=== PATIENT | male | born 1950 | race Caucasian/White ===

== ENCOUNTER 2017-10-07 12:38 | Emergency (ER) | payer MEDICARE ==
[2017-10-07] MEDS ORDERED: Aspirin 81 mg CHEW TAB* 81 MG TAB.CHEW PO ONE (13:04)
[2017-10-07 13:10] LABS: Hematocrit 41 % (42-52); Hemoglobin 14.4 g/dl (14.0-18.0); Mean Corpuscular HGB Conc 35 g/dl (31-36); Mean Corpuscular Hemoglobin 31 pg (27-31); Mean Corpuscular Volume 89 fL (80-94); Mean Platelet Volume 8.5 um3 (7.4-10.4); Platelet Count 175 10^3/ul (150-450); Red Blood Count 4.58 10^6/ul (4.0-5.4); Red Cell Distribution Width 14 % (10.5-15); White Blood Count 6.5 10^3/ul (3.5-10.8)
[2017-10-07 13:27] LABS: EGFR Non-African American 112.8 (>60)
[2017-10-07 13:58] LABS: ABS Basophils 0 10^3/ul (0-0.2); ABS Eosinophils 0.3 10^3/ul (0-0.6); ABS Lymphocytes 1.7 10^3/ul (1.0-4.8); ABS Monocytes 0.7 10^3/ul (0-0.8); ABS Neutrophils 3.7 10^3/ul (1.5-7.7)
[2017-10-07 14:00] LABS: Monocytes % 11 % (0-7)
--- NOTE | 2017-10-07 16:53 | RAD ---
INDICATION: Intermittent chest pain and pressure for one month. Chest tightness. COMPARISON: September 26, [address] TECHNIQUE: Dual energy PA and routine lateral views of the chest were obtained. REPORT: Elevated lung volumes and both diffuse mild prominence of the interstitial markings and patchy rarefaction of the mid to upper lung zone interstitial markings. No focal pulmonary lesion, compelling alveolar consolidation, pleural effusion, pneumothorax. The heart, pulmonary vasculature, and mediastinal contours are unremarkable. Unremarkable soft tissue contours and osseous structures. IMPRESSION: Stigmata of obstructive lung disease. No acute pulmonary or cardiac process evident.
[2017-10-07 17:00] VITALS: BP 131/74
--- NOTE | 2017-10-07 18:22 | ED ---
Malcolm Luna Gabriel, scribed for Gabriel Grewal MD on 10/07/17 at 1301 . HPI Chest Pain - HPI Summary HPI Summary: This patient is a 67 year old M presenting to [facility] accompanied by his with a chief complaint of intermittent chest pressure for the last month. The patient rates the pain 2/10 in severity and states it does not radiate. Patient reports fatigue. Pt has intermittent chronic dry cough. Pt saw Dr. Jarrell last week and EKG was done but he did not mention the CP to him. He states his prior TX had much more pain. Pt has needed to take multiple naps a day recently which he states is unlike him. Hx 2 stents - History of Current Complaint Chief Complaint: EDChestPainROMI Hx Obtained From: Patient Onset/Duration: Started Weeks Ago, Still Present Timing: Constant Initial Severity: Mild Current Severity: Mild Pain Intensity: 2 Pain Scale Used: 0-10 Numeric Chest Pain Location: Diffuse Chest Pain Radiates: No Associated Signs and Symptoms: Positive: Cough, Other: - fatigue - Allergy/Home Medications Allergies/Adverse Reactions: Allergies Allergy/AdvReac Type Severity Reaction Status Date / Time No Known Allergies Allergy Verified 09/26/16 10:39 PMH/Surg Hx/FS Hx/Imm Hx Endocrine/Hematology History: Denies: Hx Diabetes Cardiovascular History: Reports: Hx Myocardial Infarction Denies: Hx Coronary Artery Disease, Hx Hypertension Respiratory History: Denies: Hx Chronic Obstructive Pulmonary Disease (COPD) History: Denies: Hx Renal Disease Musculoskeletal History: Denies: Hx Congenital Bone Abnormalities Sensory History: Reports: Hx Contacts or Glasses Opthamlomology History: Reports: Hx Contacts or Glasses - Surgical History Surgery Procedure, Year, and Place: appendectomy. cardiac stent Infectious Disease History: No Infectious Disease History: Denies: Traveled Outside the [place] in Last 30 Days - Family History Known Family History: Positive: Cardiac Disease, Hypertension - Social History Occupation: Employed Part-time Lives: With Family Alcohol Use: None Hx Substance Use: No Substance Use Type: Reports: None Hx Tobacco Use: No Smoking Status (MU): Never Smoked Tobacco Review of Systems Positive: Fatigue Positive: Chest Pain Positive: Cough All Other Systems Reviewed And Are Negative: Yes Physical Exam - Summary Physical Exam Summary: VITAL SIGNS: Reviewed. GENERAL: Patient is a well-developed and nourished male who is lying comfortable in the stretcher. Patient is not in any acute respiratory distress. HEAD AND FACE: No signs of trauma. No ecchymosis, hematomas or skull depressions. No sinus tenderness. EYES: PERRLA, EOMI x 2, No injected conjunctiva, no nystagmus. EARS: Hearing grossly intact. Ear canals and tympanic membranes are within normal limits. MOUTH: Oropharynx within normal limits. NECK: Supple, trachea is midline, no adenopathy, no JVD, no carotid bruit, no c- spine tenderness, neck with full ROM. CHEST: Symmetric, no tenderness at palpation LUNGS: Clear to auscultation bilaterally. No wheezing or crackles. CVS: Regular rate and rhythm, S1 and S2 present, no murmurs or gallops appreciated. ABDOMEN: Soft, non-tender. No signs of distention. No rebound no guarding, and no masses palpated. Bowel sounds are normal. EXTREMITIES: FROM in all major joints, no edema, no cyanosis or clubbing. NEURO: Alert and oriented x 3. No acute neurological deficits. Speech is normal and follows commands. SKIN: Dry and warm Triage Information Reviewed: Yes Vital Signs On Initial Exam: Initial Vitals Temp Pulse Resp BP Pulse Ox 98.1 F 63 18 128/80 98 10/07/17 12:40 10/07/17 12:40 10/07/17 12:40 10/07/17 12:40 10/07/17 12:40 Vital Signs Reviewed: Yes Diagnostics - Vital Signs Vital Signs Temp Pulse Resp BP Pulse Ox 10/07/17 12:40 98.1 F 63 18 128/80 98 - Laboratory Lab Results: Lab Results 10/07/17 10/07/17 10/07/17 Range/Units 13:01 13:01 13:01 WBC 6.5 (3.5-10.8) 10^3/ul RBC 4.58 (4.0-5.4) 10^6/ul Hgb 14.4 (14.0-18.0) g/dl Hct 41 L (42-52) % MCV 89 (80-94) fL MCH 31 (27-31) pg MCHC 35 (31-36) g/dl RDW 14 (10.5-15) % Plt Count 175 (150-450) 10^3/ul MPV 8.5 (7.4-10.4) um3 Neut % (Auto) Not Reportable Lymph % (Auto) Not Reportable [place] % (Auto) Not Reportable Eos % (Auto) Not Reportable Baso % (Auto) Not Reportable Absolute Neuts (auto) 3.7 (1.5-7.7) 10^3/ul Absolute Lymphs (auto) 1.7 (1.0-4.8) 10^3/ul Absolute Monos (auto) 0.7 (0-0.8) 10^3/ul Absolute Eos (auto) 0.3 (0-0.6) 10^3/ul Absolute Basos (auto) 0 (0-0.2) 10^3/ul Absolute Nucleated RBC Not Reportable Neutrophils % 67 (38-83) % Lymphocytes % 17 L (25-47) % Reactive Lymphs % 2 (0-6) % Monocytes % 11 H (0-7) % Eosinophils % 2 (0-6) % Basophils % 1 (0-2) % Nucleated RBC % Not Reportable Abs Neuts (Manual) 4.4 (1.5-7.7) 10^3/ul Abs Lymphs (Manual) 1.1 (1.0-4.8) 10^3/ul Abs Monocytes (Manual) 0.7 (0-0.8) 10^3/ul Absolute Eos (Manual) 0.1 (0-0.6) 10^3/ul Abs Basophils (Manual) 0.1 (0-0.2) 10^3/ul Normal RBC Morphology Normal (Normal) Hem Pathologist Commnt Sodium 139 (139-145) mmol/L Potassium 3.9 (3.5-5.0) mmol/L Chloride 105 (101-111) mmol/L Carbon Dioxide 28 (22-32) mmol/L Anion Gap 6 (2-11) mmol/L BUN 12 (6-24) mg/dL Creatinine 0.70 (0.67-1.17) mg/dL Est GFR ( Amer) 145.1 (>60) Est GFR (Non-Af Amer) 112.8 (>60) BUN/Creatinine Ratio 17.1 (8-20) Glucose 98 (70-100) mg/dL Lactic Acid 1.0 (0.5-2.0) mmol/L Calcium 9.3 (8.6-10.3) mg/dL Total Bilirubin 0.90 (0.2-1.0) mg/dL AST 19 (13-39) U/L ALT 18 (7-52) U/L Alkaline Phosphatase 57 (34-104) U/L Total Creatine Kinase 51 (10-223) U/L CK-MB (CK-2) 1.1 (0.6-6.3) ng/mL Troponin I 0.00 (<0.04) ng/mL C-Reactive Protein 1.53 (< 5.00) mg/L Total Protein 6.5 (6.4-8.9) g/dL Albumin 3.8 (3.2-5.2) g/dL Globulin 2.7 (2-4) g/dL Albumin/Globulin Ratio 1.4 (1-3) Amylase 42 (29-103) U/L Lipase 15 (11.0-82.0) U/L / Range/Units 15:33 WBC (3.5-10.8) 10^3/ul RBC (4.0-5.4) 10^6/ul Hgb (14.0-18.0) g/dl Hct (42-52) % MCV (80-94) fL MCH (27-31) pg MCHC (31-36) g/dl RDW (10.5-15) % Plt Count (150-450) 10^3/ul MPV (7.4-10.4) um3 Neut % (Auto) Lymph % (Auto) [place] % (Auto) Eos % (Auto) Baso % (Auto) Absolute Neuts (auto) (1.5-7.7) 10^3/ul Absolute Lymphs (auto) (1.0-4.8) 10^3/ul Absolute Monos (auto) (0-0.8) 10^3/ul Absolute Eos (auto) (0-0.6) 10^3/ul Absolute Basos (auto) (0-0.2) 10^3/ul Absolute Nucleated RBC Neutrophils % (38-83) % Lymphocytes % (25-47) % Reactive Lymphs % (0-6) % Monocytes % (0-7) % Eosinophils % (0-6) % Basophils % (0-2) % Nucleated RBC % Abs Neuts (Manual) (1.5-7.7) 10^3/ul Abs Lymphs (Manual) (1.0-4.8) 10^3/ul Abs Monocytes (Manual) (0-0.8) 10^3/ul Absolute Eos (Manual) (0-0.6) 10^3/ul Abs Basophils (Manual) (0-0.2) 10^3/ul Normal RBC Morphology (Normal) Hem Pathologist Commnt Sodium (139-145) mmol/L Potassium (3.5-5.0) mmol/L Chloride (101-111) mmol/L Carbon Dioxide (22-32) mmol/L Anion Gap (2-11) mmol/L BUN (6-24) mg/dL Creatinine (0.67-1.17) mg/dL Est GFR ( Amer) (>60) Est GFR (Non-Af Amer) (>60) BUN/Creatinine Ratio (8-20) Glucose (70-100) mg/dL Lactic Acid (0.5-2.0) mmol/L Calcium (8.6-10.3) mg/dL Total Bilirubin (0.2-1.0) mg/dL AST (13-39) U/L ALT (7-52) U/L Alkaline Phosphatase (34-104) U/L Total Creatine Kinase (10-223) U/L CK-MB (CK-2) (0.6-6.3) ng/mL Troponin I 0.00 (<0.04) ng/mL C-Reactive Protein (< 5.00) mg/L Total Protein (6.4-8.9) g/dL Albumin (3.2-5.2) g/dL Globulin (2-4) g/dL Albumin/Globulin Ratio (1-3) Amylase (29-103) U/L Lipase (11.0-82.0) U/L Result Diagrams: 10/07/17 13:01 10/07/17 13:01 Lab Statement: Any lab studies that have been ordered have been reviewed, and results considered in the medical decision making process. - Radiology CXR Radiology Interpretation Completed By: Radiologist - Stigmata of obstructive lung disease. No acute pulmonary or cardiac process evident. Dr. Grewal has reviewed this report. - EKG 13:36 Cardiac Rate: NL EKG Rhythm: Sinus Rhythm - at 55 BPM EKG Interpretation: no ST elevations, ST depression in v4 v5 v6 . EKG Comparison: Other - differs from 06-17-08 Chest Pain Course/Dx - Course Assessment/Plan: Patient is a 67-year-old male who presents to the emergency room with a chief complaint of chest pressure and generalized weakness. Patient reports that he has history of coronary artery disease status post stenting and an TX. Also has history of dyslipidemia. Blood tests is without any significant abnormality except for increased monocytes. 2 troponins 4 hours apart are negative, they are 0.00. Chest x-ray shows no acute pathology. EKG shows possible elevations. Therefore the patient will be discharged home with follow-up with primary care physician and his finance admin. He was instructed to return to the emergency room if the patient develops any increasing chest pain, shortness of breath, dizziness or palpitations. There is no suspicion for PE since the patient doesnt have any hypoxia or tachycardia. I discussed all the findings and test results with the patient. Patient was instructed to return to the emergency room immediately if any of the symptoms return or worsens. Plan of care was discussed with the patient and understands and agrees. All questions were answered at patient satisfaction. There were no further complaints or concerns. Lung exam before discharge: CTA B/L. Good air exchange. No wheezing or crackles heard. CVS: S1 and S2 present. No murmurs appreciated. Patient is alert and oriented x 3. Patient is hemodynamically stable. Patient will be discharged home with follow up PCP in the next 2-3 days - Chest Pain Differential Diagnosis/HQI/PQRI: Acute TX, ACS, Angina, CHF, Chest Wall, GI Disease, Lower Respiratory Infection - Diagnoses Provider Diagnoses: Atypical chest pain Discharge - Sign-Out/Discharge Documenting (check all that apply): Discharge/Admit/Transfer - Discharge Plan Condition: Stable Disposition: HOME Patient Education Materials: Chest Pain (ED) Referrals: Amrita Barrios MD [Primary Care Provider] - 3 Days Additional Instructions: RETURN TO THE ER FOR ANY NEW OR WORSENING SYMPTOMS The documentation as recorded by the Malcolm yoon Gabriel accurately reflects the service I personally performed and the decisions made by Uri buenrostro Walter, MD.
== END 2017-10-07 16:58 | disposition home or self-care (01) ==
LOC: ED 12:38
DX: R07.89 Other chest pain (principal); R05 Cough; R53.83 Other fatigue
CPT/HCPCS: 36415; 71046; 80053; 82150; 82550; 82553; 83605; 83690; 84484; 85025; 85060; 86140; 93005; 99283; A9270-GY

== ENCOUNTER 2018-01-07 07:18 | Day surgery (SDC) | payer MEDICARE ==
[~2018-01-07 07:18] MED LIST: Acetaminophen TAB* 325 MG PO PRN; Buffered Lidocaine 0.9% SYRIN* 5 ML/SYR SYRINGE INTRADERM ONE
[2018-01-07] MEDS ORDERED: Midazolam* 1 MG/ML 2 ML VIAL (2 MG) ONE ×2 (08:52→09:15)
[2018-01-07] MEDS ORDERED: Cyclopentolate 1% OPTH.SOL* 2 ML BTL ONE (09:20)
[2018-01-07] MEDS ORDERED: acetaZOLAMIDE TAB* 250 MG ONE (09:20)
[2018-01-07] MEDS ORDERED: Ketorolac 0.5% OPHTH (NF) 0.5 % 5 ML BTL ONE (09:20)
[2018-01-07] MEDS ORDERED: Neomycin/Polymy/Dex OPTH.SUSP* MAXITROL 0.1% 5 ML ONE (09:20)
[2018-01-07] MEDS ORDERED: Proparacaine 0.5% OPHTH.SOL* 15 ML BTL ONE (09:20)
[2018-01-07] MEDS ORDERED: Povidone Iodine 5% OPTH* 30 ML BTL ONE (09:20)
[2018-01-07] MEDS ORDERED: Lidocaine 2% EPI 1:200000 MPF*10-20 ML VIAL ONE (09:20)
[2018-01-07] MEDS ORDERED: Phenylephrine 2.5% OPTH.SOL* 2 ML BTL ONE (09:20)
[2018-01-07] MEDS ORDERED: Lidocaine 1%* 5 ML VIAL ONE (09:20)
[2018-01-07 09:46] VITALS: BP 110/65
--- NOTE | 2018-01-07 15:34 | OP ---
DATE OF OPERATION: 01/07/18 [facility] DATE OF : 52 SURGEON: Kj Dong MD PREOPERATIVE DIAGNOSIS: Cataract, left eye. POSTOPERATIVE DIAGNOSIS: Cataract, left eye. OPERATIVE PROCEDURE: Extracapsular cataract extraction with intraocular lens implant left eye. DESCRIPTION OF PROCEDURE: The patient was brought to the operating room after being given 1/2% Alcaine with epinephrine drops in the preoperative area. The eye was prepped and draped in the usual sterile fashion. Sterile drape and eyelid speculum were placed. Again, topical 1/2% Alcaine with epinephrine was given. A paracentesis incision was made at the 3 o'clock position with the No.75 blade. Clear cornea incision 2.2 x 2.2-mm was created at the 6 o'clock position starting at the anterior limbus using the 2.2-mm keratome. The anterior chamber was irrigated with 0.4 mL of 1% non-preservative intracameral lidocaine and filled with DisCoVisc. A capsulorrhexis was completed using the cystotome and the Utrata forceps. Hydrodissection was performed with balanced salt solution. The lens nucleus was removed with the Phacoemulsification handpiece without incident. Cortex was removed with the irrigation-aspiration handpiece. The capsular bag was re-inflated using DisCoVisc and an SN60WF 8.5 implant was inserted with the shooter. The irrigation-aspiration handpiece was used to remove all residual DisCoVisc. The eye was refilled with balanced salt solution and the wound checked and found to be watertight. Topical Maxitrol drops were given. [id number]/[facility] #: [id number] [facility]
== END 2018-01-07 09:52 | disposition home or self-care (01) ==
LOC: OREAST 07:18
PROVIDERS: ATTEND Specialist
DX: H25.812 Combined forms of age-related cataract, left eye (principal); I25.10 Atherosclerotic heart disease of native coronary artery without angina pectoris; I25.2 Old myocardial infarction; E78.00 Pure hypercholesterolemia, unspecified; H44.20 Degenerative myopia, unspecified eye
CPT/HCPCS: A9270-GY; J2250; V2632

== ENCOUNTER 2018-01-14 09:09 | Day surgery (SDC) | payer MEDICARE ==
[~2018-01-14 09:09] MED LIST changes: +Cyclopentolate 1% OPTH.SOL* 2 ML BTL ONE; +Ketorolac 0.5% OPHTH (NF) 0.5 % 5 ML BTL ONE; +Lidocaine 1%* 5 ML VIAL ONE; +Lidocaine 2% EPI 1:200000 MPF*10-20 ML VIAL ONE; +Neomycin/Polymy/Dex OPTH.SUSP* MAXITROL 0.1% 5 ML ONE; +Phenylephrine 2.5% OPTH.SOL* 2 ML BTL ONE; +Povidone Iodine 5% OPTH* 30 ML BTL ONE; +Proparacaine 0.5% OPHTH.SOL* 15 ML BTL ONE; +acetaZOLAMIDE TAB* 250 MG ONE
[2018-01-14] MEDS ORDERED: Midazolam* 1 MG/ML 2 ML VIAL (2 MG) ONE ×2 (11:06→11:22)
[2018-01-14 11:54] VITALS: BP 131/67
--- NOTE | 2018-01-14 12:54 | OP ---
DATE OF OPERATION: 01/14/2018. DATE OF : 1950. SURGEON: Kj Dong M.D. PREOPERATIVE DIAGNOSIS: Cataract right eye. POSTOPERATIVE DIAGNOSIS: Cataract right eye. OPERATIVE PROCEDURE: Extracapsular cataract extraction with intraocular lens implant right eye. PROCEDURE: The patient was brought to the operating room after being given 1/2% Alcaine with epineph rine drops in the preoperative area. The eye was prepped and draped in the usual sterile fashion. S terile drape and eyelid speculum were placed. Again, topical 1/2% Alcaine with epinephrine was given . A paracentesis incision was made at the 9 o'clock position with the No.75 blade. Clear cornea inc ision 2.2 x 2.2-mm was created at the 12 o'clock position starting at the anterior limbus using the 2 .2-mm keratome. The anterior chamber was irrigated with 0.4 mL of 1% non-preservative intracameral l idocaine and filled with DisCoVisc. A capsulorrhexis was completed using the cystotome and the Utrat a forceps. Hydrodissection was performed with balanced salt solution. The lens nucleus was removed w ith the Phacoemulsification handpiece without incident. Cortex was removed with the irrigation-aspir ation handpiece. The capsular bag was re-inflated using DisCoVisc and an SN60WF 10.5 implant was ins erted with the shooter. The irrigation-aspiration handpiece was used to remove all residual DisCoVis c. The eye was refilled with balanced salt solution and the wound checked and found to be watertight . Topical Maxitrol drops were given. [id number]/[facility] #: [id number]
== END 2018-01-14 12:04 | disposition home or self-care (01) ==
LOC: OREAST 09:09
PROVIDERS: ATTEND Specialist
DX: H25.811 Combined forms of age-related cataract, right eye (principal); H44.23 Degenerative myopia, bilateral; I25.2 Old myocardial infarction; E78.00 Pure hypercholesterolemia, unspecified; I25.10 Atherosclerotic heart disease of native coronary artery without angina pectoris; Z95.5 Presence of coronary angioplasty implant and graft
CPT/HCPCS: A9270-GY; J2250; V2632

== ENCOUNTER 2018-09-14 08:27 | Emergency (ER) | payer MEDICARE ==
[2018-09-14 08:53] VITALS: BP 115/69
--- NOTE | 2018-09-14 09:05 | UC ---
Skin Complaint HPI - HPI Summary HPI Summary: 68-year-old otherwise healthy male presents with three-days of itchy rash to the anterior neck. 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 He denies any bleeding to the wound but states that it is expanding. He did start putting his 's antifungal cream on it last night. He denies any other symptoms to include joint aches, fever. He does have a dermatology appointment on . - History of Current Complaint Chief Complaint: UCRash Time Seen by Provider: 09/14/18 08:42 Stated Complaint: RASH Hx Obtained From: Patient Pain Intensity: 0 - Allergy/Home Medications Allergies/Adverse Reactions: Allergies Allergy/AdvReac Type Severity Reaction Status Date / Time No Known Allergies Allergy Verified 09/14/18 08:53 Home Medications: Home Medications buPROPion HCl [Wellbutrin Sr] 100 mg PO DAILY WITH MEAL 09/14/18 [History Confirmed 09/14/18] PMH/Surg Hx/FS Hx/Imm Hx Previously Healthy: Yes Psychological History: Depression - Surgical History Surgical History: Yes Surgery Procedure, Year, and Place: [facility] - Family History Known Family History: Positive: Cardiac Disease, Hypertension - Social History Occupation: Employed Full-time Alcohol Use: None Substance Use Type: None Smoking Status (MU): Never Smoked Tobacco Have You Smoked in the Last Year: No Review of Systems All Other Systems Reviewed And Are Negative: Yes Constitutional: Negative: Fever Skin: Positive: Rash Eyes: Positive: Negative Respiratory: Positive: Negative Cardiovascular: Positive: Negative Is Patient Immunocompromised?: Yes Physical Exam Triage Information Reviewed: Yes Appearance: Well-Appearing, No Pain Distress, Well-Nourished Vital Signs: Initial Vital Signs Temp 98.1 F 09/14/18 08:49 Pulse 69 09/14/18 08:49 Resp 18 09/14/18 08:49 BP 115/69 09/14/18 08:49 Pulse Ox 97 09/14/18 08:49 Eye Exam: Normal ENT: Positive: Normal ENT inspection Neck: Positive: Supple Respiratory: Positive: Lungs clear Cardiovascular: Positive: RRR Musculoskeletal: Positive: Strength Intact, ROM Intact Skin Exam: Other - Reddened annular lesion in the anterior neck and just below it in the midline chest. The neck lesion is approximately 3 cm in diameter. The smaller chest lesion is approximately 1.5 cm in diameter. The lesions are erythematous with perhaps slight clearing in the center but have been covered with an ointment. Course/Dx - Course Course Of Treatment: 2 annular lesions on the chest/neck appears to likely be ringworm. There is no central clearing but this may be due to early presentation or application of antifungal ointment. I will prescribe Lotrimin cream and a tablet of Diflucan. He'll keep this covered for the next 5 days. He does have a dermatology appointment on where this can be rechecked. - Differential Diagnoses - Skin Complaint Differential Diagnoses: Other - Granuloma annulare, ringworm, erythema migrans - Diagnoses Provider Diagnosis: Ringworm of body Discharge - Sign-Out/Discharge Documenting (check all that apply): Patient Departure All imaging exams completed and their final reports reviewed: No Studies - Discharge Plan Condition: Improved Disposition: HOME Prescriptions: Clotrimazole 1% TOPICAL (NF) [Lotrimin 1% TOPICAL (NF)] 1 applic TOPICAL TID 21 Days #1 tube Fluconazole 150 MG TAB* [Diflucan 150 MG TAB*] 150 mg PO ONCE #1 tablet Patient Education Materials: Skin Yeast Infection (ED) Referrals: Amrita Barrios MD [Primary Care Provider] - Additional Instructions: Keep covered this week. See the bit sharpener on as scheduled. Return if worse, new symptoms or other concerns. - Billing Disposition and Condition Condition: IMPROVED Disposition: Home
== END 2018-09-14 09:05 | disposition home or self-care (01) ==
LOC: UCEAST 08:27
DX: B35.4 Tinea corporis (principal); F32.9 Major depressive disorder, single episode, unspecified; Z95.5 Presence of coronary angioplasty implant and graft; Z90.89 Acquired absence of other organs
CPT/HCPCS: 99212; G0463

== ENCOUNTER 2019-03-23 07:51 | Observation (INO) | payer MEDICARE ==
[2019-03-23] MEDS ORDERED: Aspirin 81 mg CHEW TAB* 81 MG TAB.CHEW ONE (13:37)
[2019-03-23] MEDS ORDERED: Diazepam TAB(*) 5 MG ONE (14:08)
[2019-03-23] MEDS ORDERED: diPHENhydraMINE PO* 25 MG ONE (14:08)
[2019-03-23 14:14] LABS: ABS Eosinophils 0.2 10^3/ul (0-0.6); ABS Lymphocytes 1.2 10^3/ul (1.0-4.8); ABS Monocytes 0.6 10^3/ul (0-0.8); ABS Neutrophils 3.9 10^3/ul (1.5-7.7); Eosinophil % 3.1 %; Hematocrit 43 % (42-52); Hemoglobin 14.8 g/dL (14.0-18.0); Lymphocyte % 20.1 %; Mean Corpuscular HGB Conc 35 g/dL (31-36); Mean Corpuscular Hemoglobin 31 pg (27-31); Mean Corpuscular Volume 88 fL (80-94); Mean Platelet Volume 8.6 fL (7.4-10.4); Platelet Count 188 10^3/uL (150-450); Red Blood Count 4.82 10^6 /uL (4.18-5.48); Red Cell Distribution Width 13 % (10-15)
[2019-03-23] MEDS ORDERED: fentaNYL* 50 MCG/ML 2 ML VIAL (100 MCG VIAL) ONE (14:15)
[2019-03-23] MEDS ORDERED: Midazolam* 1 MG/ML 5 ML VIAL (5 MG) ONE (14:16)
[2019-03-23] MEDS ORDERED: Heparin(*) 1000 UNIT/ML 10 ML VIAL CATH LAB IV ONE (14:16)
[2019-03-23] MEDS ORDERED: VERAPAMIL 2.5 MG/ML 2 ML VIAL ** 5 mg/2 ml ONE (14:16)
[2019-03-23] MEDS ORDERED: nitroGLYCERIN DRIP* 25,000 MCG/250 ML BTL ONE (14:16)
[2019-03-23] MEDS ORDERED: Heparin 2 UNITS/ML IVPREMIX* 2,000 ML IV ONE (14:16)
[2019-03-23] MEDS ORDERED: Iohexol 350 (CONTRAST) 200 ML MDV IV ONE ×2 (14:16→14:45)
[2019-03-23] MEDS ORDERED: Lidocaine 1% INJ* 10 MG/ML 30 ML SDV ONE (14:16)
[2019-03-23 14:24] LABS: INR 1.03 (0.82-1.09)
[2019-03-23 14:25] LABS: BUN/Creatinine Ratio 16.9 (8-20); Calcium 9.5 mg/dL (8.6-10.3); EGFR African American 133.9 (>60); EGFR Non-African American 110.7 (>60); Potassium 3.9 mmol/L (3.5-5.0)
[2019-03-23] MEDS ORDERED: Enoxaparin(*) 80 MG/0.8 ML SYR ONE (15:00)
[2019-03-23] MEDS ORDERED: Acetaminophen TAB* 325 MG PO PRN (15:19)
[2019-03-23] MEDS ORDERED: Zolpidem TAB* 5 MG PO PRN (15:21)
[2019-03-23] MEDS ORDERED: NS 0.9% 1000 ML** 1,000 ML IV SCH (15:30)
--- NOTE | 2019-03-23 16:23 | CATH ---
"*[facility]* [place] [address] Main: [phone] [email or web address] Cardiac Catheterization Patient: Caio Young : 1950 Study Date: 03/23/2019 Age: 68 Gender: M HR: Height: 71 in /180.3 cm BSA: 2.08 m^2 Weight: 188.1 lb /85.5 kg BMI: 26.3 kg/m^2 Cash Management Clerk: Mejia Jarrell MD Ordering Physician: Mejia Jarrell MD Referring Physician: Mejia Jarrell MD, Wesly Angel, --- - Left coronary angiography. - Right coronary angiography. - Left heart catheterization with angiography. Summary: 1. LAD: Mid-vessel lesion: There is a 70% stenosis. 2. 1st diagonal: Proximal vessel lesion: There is a 100% stenosis. With Left to Left collaterals 3. Right coronary: Distal vessel lesion: There is a discrete, 80%restenosisin the previous stent #1. 4. Left ventricle: Systolic function is normal. The estimated ejection fraction is 55-60%. Recommendations: CABG. History: PMH: Myocardial infarction. Labs, prior tests, procedures, and surgery: Stress myocardial perfusion imaging. Abnormal. High risk of ischemia. Catheterization with coronary intervention (05/19/2007). Blood tests: International normalized ratio (INR) of 1.03. Serum potassium (K) of 3.9 mEq/l. Serum sodium (Na) of 139 mEq/l. Serum creatinine (current admission) of 0.71 mg/dl. Blood urea nitrogen of 12 mg/dl. Glucose of 91 mg/dl. Platelet count of 188 th/ul. White blood cell count (WBC) of 0.01 th/ul. Red blood cell count (RBC) of 4820 th/ul. Hematocrit of 43 %. Hemoglobin (pre-procedure) of 14.8 g/dl. Study data: Study status: Cardiac cath: urgent. Location: Catheterization laboratory. Consent: The risks, benefits, and alternatives to the procedure were explained to the patient and/or their healthcare banking representative and written informed consent was obtained. All available pre-procedure labs were reviewed. Height: 180.3 cm. 71 in. Weight: 85.5 kg. 188.1 lb. Body surface area: 2.08 m^2. Body mass index: 26.3 kg/m^2. Procedure: 1. Initial setup. The patient was brought to the laboratory. Surface ECG leads, blood pressure measurements, and pulse oximetric signals were monitored. A baseline seven lead ECG was recorded. A time out was observed per protocol. 2. Skin preparation. The planned puncture sites were prepped and draped in the usual sterile manner. 3. Local anesthesia. 1% lidocaine was administered. 4. Sedation. was administered. 5. Local anesthesia. 1% lidocaine (1 ml) was administered. 6. Right radial artery access. A 6F [place] Slender sheath was advanced into the vessel. 7. Supplemental oxygen. Oxygen, 2 L/min was administered throughout the procedure. 8. Selective left coronary angiography. A 5F TIG 4.0 catheter was advanced into the left coronary vessel ostium under fluoroscopic guidance. Contrast was injected. Images were obtained in multiple projections. 9. Selective right coronary angiography. A 5F TIG 4.0 catheter was advanced into the right coronary vessel ostium under fluoroscopic guidance. Contrast was injected. Images were obtained in multiple projections. 10. Left heart catheterization with angiography. A 5F PIG Short Radial catheter was advanced across the aortic valve to the left ventricle under fluoroscopic guidance. 35 ml of contrast was injected at 10 ml/s. 11. Right radial artery hemostasis. Vessel closure was achieved with a Regular Vasc Band device. Study completion: Minimal estimated blood loss. All catheters inserted during the procedure were removed. There were no apparent complications. Administered medications: Aspirin, 324mg, PO. VERSED (Midazolam), 1mg, IV. Fentanyl, 25mcg, IV. (Radial) Nitroglycerin, 300mcg, intra-arterially. (Radial) Verapamil, 3mg, intra-arterially. (Radial) Heparin, 3,000units, intra-arterially. Heparin (LMW) [Lovenox], 80mg, subcutaneously. NaCl 0.9% , infusion , at a rate of 100 ml/hr. NaCl 0.9% , 250 ml , bolus. Contrast: Omnipaque 350 70 ml (total dose). Omnipaque 350 330 ml (wasted). Radiation: Fluoroscopy dose: 103.9 cGy. Discharge: The patient tolerated the procedure well and was discharged from the lab in stable condition. Findings Coronary arteries: The coronary circulation is right dominant. Left main: LAD: Proximal vessel lesion: There is a 40% stenosis. Mid-vessel lesion: There is a 70% stenosis. 1st diagonal: Proximal vessel lesion: There is a 100% stenosis. Moderate collateral flow from the second obtuse marginal. Left circumflex: Proximal vessel lesion: There is a 30% stenosis. Right coronary: Prior intervention #1: stent in the distal RCA. The stented segment is patent. Distal vessel lesion: There is a discrete, 80%restenosisin the previous stent #1. Left ventricle: Systolic function is normal. The estimated ejection fraction is 55-60%. Hemodynamics: + + + |Stage description |Condition 1 - | + + + |LV pressure s/d, ed |106/17, 12, dP/ya=1990 mm Hg/s| + + + |Arterial pressure s/d (m)|99/52 (74) | + + + Prepared and electronically signed by Mejia Jarrell MD 03/23/2019 16:23"
[2019-03-23] MEDS ORDERED: Regadenoson* 0.4 MG/5 ML SYRINGE ONE (16:43)
[2019-03-23] MEDS ORDERED: Atorvastatin* 20 MG TAB PO SCH (18:00)
--- NOTE | 2019-03-23 23:02 | TRS ---
CC: Dr. Amrita Barrios; Dr. Eloy Anderson * ADMISSION HISTORY AND PHYSICAL/TRANSFER SUMMARY: DATE OF ADMISSION: 03/23/19 CARDIOTHORACIC SURGERY: Dr. Eloy Anderson, [place], [place]. INDICATION FOR ADMISSION: Crescendo angina. HISTORY OF PRESENT ILLNESS: The patient is a 68-year-old gentleman with a history of coronary artery disease and history of stenting to his right coronary artery back in July 2007. The patient has been followed closely in my office. I had seen the patient in consultation in November; at that time, he had no complaints. The patient called our office last week saying he was having chest pain with exertion and it was getting more frequent with less exertion. At the time he called me, he was having chest pain with just activities around the house. The patient denied any orthopnea. He denied any palpitations. No lightheadedness, dizziness, or syncope. The patient was scheduled for a stress test today. PAST MEDICAL HISTORY: Significant for coronary artery disease, ADHD, depression. PAST SURGICAL HISTORY: Appendectomy in 1989. MEDICATIONS: Outpatient Medications: 1. Escitalopram oxalate 5 mg a day. 2. Atorvastatin 20 mg a day. 3. Aspirin 325 mg a day. 4. CoQ10 one tablet a day. 5. Multiple supplements. ALLERGIES: No known drug allergies. SOCIAL HISTORY: He is . He is a musician. He denies tobacco use. Tries to gets regular exercise. He follows a vegan diet. He drinks 2 to 3 cups of coffee a day. REVIEW OF SYSTEMS: Negative for fever or chills. Negative for changes in bowel or bladder habits. Negative for weight changes. Other 12-point review is unremarkable, except for his crescendo angina. PHYSICAL EXAMINATION: On physical exam, height is 5 feet 11 inches, weight is 188 pounds. Heart rate 75, blood pressure 128/62, respiratory rate is 16, oxygen saturation 96% on room air. Sclerae anicteric. Oropharynx is pink without erythema. Carotids are 2+ without bruits. JVD is normal. Thyroid is normal. Cardiac Exam: S1, S2 without any murmurs, rubs, or gallops. Lungs are clear to auscultation. Extremities: Show no edema. He has 2+ pulses throughout. The patient is awake, alert, and oriented. He moves all 4 extremities equally. DIAGNOSTIC STUDIES/LAB DATA: Laboratory Studies: CBC within normal limits. Chemistries within normal limits. BUN 12, creatinine 0.7. INR is 0.13. EKG today demonstrates sinus bradycardia at 56 beats per minutes; otherwise, unremarkable. The patient underwent an exercise nuclear stress test today. He exercised for 6 minutes. He had chest pain starting at 1 minute into exercise and lasting 7 minutes into recovery. He had [address]-segment depression at peak exercise. His nuclear images showed a larger area of ischemia to the anterolateral wall. No areas of infarct. His ejection fraction was calculated at 48%, but no focal wall motion abnormalities. This was labeled as a high-risk stress test, and because of his crescendo angina and his history of coronary artery disease, it was recommended that the patient undergo cardiac catheterization. The patient underwent cardiac catheterization, which showed a long 70% stenosis to his mild LAD. His first diagonal vessel was occluded with left to left collaterals. His ramus artery had a proximal 50% stenosis. His circumflex artery was normal. His right coronary artery had an 80% stenosis of the proximal portion of a previously placed stent. The remainder of the vessel was without disease. There was no disease in the PDA or posterolateral branches. Left ventriculogram showed normal LV size and systolic function. The patient will be admitted to the hospital overnight. The patient was given Lovenox 1 mg/kg in the medical lab specialist. His other medications will be continued. The patient is going to be transferred to [facility] under the care of Dr. Eloy Anderson for preparation for potential bypass surgery. This was discussed in great detail with Dr. Anderson and he is accepted in transfer. Further recommendations pending the results of this coronary bypass surgery. [id number]/[facility] #: [id number] [facility]
[2019-03-24 05:36] VITALS: BP 129/78
[2019-03-24] MEDS ORDERED: Aspirin TAB* 325 MG PO SCH (09:00)
== END 2019-03-24 06:15 | disposition short-term general hospital (02) ==
LOC: IMG 07:51 → ICU 15:18 → INTOOBSV 15:18
PROVIDERS: ADMIT Specialist; ATTEND Specialist
DX: R07.9 Chest pain, unspecified (principal); I25.10 Atherosclerotic heart disease of native coronary artery without angina pectoris; Z79.82 Long term (current) use of aspirin; Z79.899 Other long term (current) drug therapy; F41.9 Anxiety disorder, unspecified; I25.2 Old myocardial infarction; F32.9 Major depressive disorder, single episode, unspecified; F90.9 Attention-deficit hyperactivity disorder, unspecified type
CPT/HCPCS: 36415; 78452; 80048; 85025; 85610; 87641; 93005; 93017; 93458; 99156; 99157; A9270-GY; A9502; G0378; J1644; J1650; J2250; J2785; J3010

== ENCOUNTER 2024-03-02 21:00 | Observation (INO) ==
[2024-03-02 21:34] LABS: Hematocrit 39.8 % (38-53); Hemoglobin 13.9 g/dL (13.2-16.3); Mean Corpuscular Hemoglobin 31.3 pg (27-33); Mean Corpuscular Hgb Conc 34.8 g/dL (31-36); Mean Corpuscular Volume 89.8 fL (80-97); Mean Platelet Volume 8.9 fL (7.5-11.2); Platelet Count 196 10^3/uL (150-450); Red Blood Count 4.43 10^6/uL (4.06-5.63); Red Cell Distribution Width 12.9 % (12-17)
[2024-03-02 21:46] LABS: INR 1.06 (0.85-1.14)
[2024-03-02 22:12] LABS: Albumin 4.1 g/dL (3.2-5.2); Albumin/Globulin Ratio 1.8 (1-3); Creatinine, Serum 0.83 mg/dL (0.67-1.17); Globulin 2.3 g/dL (2-4); Potassium 4.2 mmol/L (3.5-5.0); Total Bilirubin 0.7 mg/dL (0.2-1.0); Total Protein 6.4 g/dL (6.4-8.9)
[2024-03-02 22:23] LABS: ABS Basophils 0.1 10^3/uL (0.0-0.1); ABS Eosinophils 0.3 10^3/uL (0.0-0.5); ABS Lymphocytes 1.6 10^3/uL (1.0-4.8); ABS Monocytes 0.8 10^3/uL (0.0-1.1); ABS Neutrophils 4.3 10^3/uL (1.5-7.6); ABS Nucleated RBC 0.01 10^3/ul; Eosinophil % 4.2 %; Lymphocyte % 22.1 %; Nucleated Red Blood Cells % 0.1 %/100WBC (0.0-0.8); RBC Morphology Normal (Normal)
[2024-03-02 23:02] LABS: High Sensitivity Troponin 1 Hr 6 pg/mL (<20)
[2024-03-03] MEDS ORDERED: Regadenoson 0.4 MG/5 ML SYRINGE ONE (10:33)
[2024-03-03] MEDS ORDERED: Sulfur Hexaflouride MICROSPHR 25 MG VIAL IV PRN ×2 (14:30→17:51)
[2024-03-04] MEDS ORDERED: Sulfur Hexaflouride MICROSPHR 25 MG VIAL ONE (08:37)
[2024-03-04 09:59] VITALS: BP 105/79
[2024-03-04 11:38] LABS: Ferritin 97.2 ng/mL (24-336)
[2024-03-04 11:40] LABS: Folate 15.44 ng/mL (5.90-24.80)
[2024-03-04 11:44] LABS: Vitamin D Total 25(OH) 40.4 ng/mL (20-50)
== END 2024-03-04 12:53 | disposition home or self-care (01) ==
LOC: EDHOLD 21:00 → ED 21:00 → SUATTDRO 03-03 00:12 → MEDTELE 03-03 01:30
PROVIDERS: ADMIT Internal Medicine; ATTEND Student in an Organized Health Care Education/Training Program